=== PATIENT | male | born 1975 | race Caucasian/White ===

== ENCOUNTER 2020-03-23 08:41 | Day surgery (SDC) | payer OTHER ==
[~2020-03-23] VITALS: Ht 167.6 cm; Wt 116.4 kg
[~2020-03-23 08:41] MED LIST: ALBU90OI INH; ARIP10 PO; ASPI81CH PO; ASPIR 8181 MG PO; ATOR20 PO; ATOR40TA PO; BENTYL20 MG PO; BENZ100A PO; BUTASPCAFT PO; CITA20 PO; DIVA250EC PO; DIVA500ER PO; ESGIC 50-325-41 EACH PO; GEMF600 PO; GLIP5 PO; Gemfibrozil600 MG; HTN; IBUP600 PO; IBUP800 PO; MELO7.5 PO; METFORMIN HCL1000 M2 PO; OMEP40CA12 PO; Percocet 5-3251 EACH PO; Prozac40 MG PO; SEIZURE MED; SERT100; SERT100 PO; TOPI50; omeprazole 20 mg cap
--- NOTE | 2020-03-23 11:38 | NUR ---
03/23/20 1138 KELLY CÁRDENAS IV SITE LEFT FORARM.
== END 2020-03-23 12:15 | disposition home or self-care (01) ==
LOC: ORSCSDS 08:41
PROVIDERS: Orthopaedic Surgery
PROC: 0RBJ4ZZ Excision of Right Shoulder Joint, Percutaneous Endoscopic Approach (ICD-10-PCS; principal; 2020-03-23 10:00)
DX: S43.431A Superior glenoid labrum lesion of right shoulder, initial encounter (principal); S46.101A Unspecified injury of muscle, fascia and tendon of long head of biceps, right arm, initial encounter; M75.111 Incomplete rotator cuff tear or rupture of right shoulder, not specified as traumatic; I10 Essential (primary) hypertension; J45.909 Unspecified asthma, uncomplicated; E11.9 Type 2 diabetes mellitus without complications; E78.5 Hyperlipidemia, unspecified; I25.2 Old myocardial infarction; E66.01 Morbid (severe) obesity due to excess calories; Z68.41 Body mass index [BMI] 40.0-44.9, adult; U07.1 COVID-19; Z79.899 Other long term (current) drug therapy; Z79.82 Long term (current) use of aspirin; Z79.84 Long term (current) use of oral hypoglycemic drugs
CPT/HCPCS: 82947; J0171; J0735; J1100; J1885; J2001; J2250; J2370; J2405; J2704; J2795; J3010; J7120

== ENCOUNTER 2021-12-31 15:19 | Emergency (ER) | payer OTHER ==
[~2021-12-31] VITALS: Ht 167.6 cm; Wt 106.6 kg
[~2021-12-31 15:19] MED LIST changes: +GABA300; +PRED20 PO; +TRAM50 PO
[2021-12-31 15:59] LABS: Source, Urine Clean Catch
[2021-12-31 16:03] LABS: Appearance, Urine Clear (Clear); Bilirubin, Urine Neg (Neg); Blood, Urine Neg (Neg); Color, Urine Yellow (P-Yellow); Glucose Qualitative, Urine Neg (Neg); Ketones, Urine 1+ (Neg); Leukocyte Esterase, Urine Neg (Neg); Nitrite, Urine Neg (Neg); Protein, Urine Neg (Neg); Specific Gravity, Urine 1.015 (1.003-1.022); Urobilinogen, Urine 2+ (Normal)
[2021-12-31] MEDS ORDERED: Percocet 5-3251 EACH PO (18:15)
[2022-01-01] MEDS ORDERED: Percocet 5-3251 EACH PO (15:11)
[2022-01-02] MEDS ORDERED: Percocet 5-3251 EACH PO (12:50)
== END 2021-12-31 18:45 | disposition home or self-care (01) ==
LOC: ER 15:19
PROVIDERS: Physician Assistant Medical
DX: M54.16 Radiculopathy, lumbar region (principal); I25.2 Old myocardial infarction; E11.9 Type 2 diabetes mellitus without complications; E78.00 Pure hypercholesterolemia, unspecified; I10 Essential (primary) hypertension; J45.909 Unspecified asthma, uncomplicated; Z79.899 Other long term (current) drug therapy; Z79.82 Long term (current) use of aspirin; Z79.84 Long term (current) use of oral hypoglycemic drugs; Z88.5 Allergy status to narcotic agent; Z88.0 Allergy status to penicillin; Z88.8 Allergy status to other drugs, medicaments and biological substances; Z87.891 Personal history of nicotine dependence
CPT/HCPCS: 81003; A9270; J1885

== ENCOUNTER 2023-07-07 15:41 | Inpatient (IN) | payer OTHER ==
[~2023-07-07] VITALS: Ht 167.6 cm; Wt 104.2 kg
[2023-07-09 11:55] VITALS: BP 143/103
== END 2023-07-09 13:30 | disposition left against medical advice (07) | DRG 303 ==
LOC: ER 15:41 → PCU 15:42
PROVIDERS: ADMIT Internal Medicine
DX: I25.110 Atherosclerotic heart disease of native coronary artery with unstable angina pectoris (principal); F41.8 Other specified anxiety disorders; E11.9 Type 2 diabetes mellitus without complications; G40.909 Epilepsy, unspecified, not intractable, without status epilepticus; Z53.29 Procedure and treatment not carried out because of patient's decision for other reasons; Z88.0 Allergy status to penicillin; Z88.5 Allergy status to narcotic agent; Z88.8 Allergy status to other drugs, medicaments and biological substances; I10 Essential (primary) hypertension; K21.9 Gastro-esophageal reflux disease without esophagitis; Z79.82 Long term (current) use of aspirin; Z79.4 Long term (current) use of insulin; Z79.899 Other long term (current) drug therapy; Z87.891 Personal history of nicotine dependence; F10.11 Alcohol abuse, in remission; E66.01 Morbid (severe) obesity due to excess calories; Z79.84 Long term (current) use of oral hypoglycemic drugs; I25.2 Old myocardial infarction; E78.00 Pure hypercholesterolemia, unspecified; G43.909 Migraine, unspecified, not intractable, without status migrainosus; J45.909 Unspecified asthma, uncomplicated; Z98.890 Other specified postprocedural states; Z82.49 Family history of ischemic heart disease and other diseases of the circulatory system; Z68.39 Body mass index [BMI] 39.0-39.9, adult

== ENCOUNTER → 2024-04-12 | Outpatient (CLI) | payer OTHER ==
[~2024-04-12] MED LIST changes: +CYCL10 PO; +DICL75ER PO; +DIVA500EC PO; +Depakote ER500 MG PO; +PREG75 PO; +QUET25 PO; +VALSARTAN80 MG PO
[2024-04-12 20:07] LABS: Microalb/Creat Ratio UR, Rand 11.944 mg/g (0.000-30.000); Microalbumin, Random Urine 25.8 mg/L (0.000-20.000)
== END ==
LOC: LAB SHORT 18:42 → LAB 18:42
PROVIDERS: Family Medicine
DX: E11.9 Type 2 diabetes mellitus without complications (principal)
CPT/HCPCS: 82043; 82570

== ENCOUNTER → 2024-05-14 | Outpatient (CLI) | payer OTHER ==
[2024-05-14 19:52] LABS: CHOL/HDL RATIO 5.8; Cholesterol 168 mg/dL (50-200); HDL Cholesterol 29 mg/dL (>39); LDL/HDL RATIO Unable to Calculate; Low Density Lipoprotein Chol Unable to Calculate mg/dL (0-110); Triglycerides 418 mg/dL (30-160); Very Low Density Lipoprot Chol Unable to Calculate mg/dL (6-32)
== END | disposition home or self-care (01) ==
LOC: LAB 17:23 → LAB SHORT 17:23
PROVIDERS: Nurse Practitioner Family
DX: Z09 Encounter for follow-up examination after completed treatment for conditions other than malignant neoplasm (principal); Z86.73 Personal history of transient ischemic attack (TIA), and cerebral infarction without residual deficits
CPT/HCPCS: 80061